=== PATIENT | female | born 1945 | race Caucasian/White ===

== ENCOUNTER → 2017-06-28 | Outpatient (CLI) | payer OTHER | LOC: ULTRA 09:23 | DX: M79.605 Pain in left leg (principal); M79.89 Other specified soft tissue disorders ==

== ENCOUNTER → 2019-06-19 | Outpatient (CLI) | payer OTHER ==
[~2019-06-19] MED LIST: 8 HOUR C500 MG PO; ASA81BEC PO; ASTAGRAF XL1 MG PO; COZAAR 25 MG TA25 M1 PO; DIPHENHYDRAMINE25 M3 PO; KLOR-CON 10 ER10 MEQ PO; LEVO-T75 MCG PO; METOPROLOL SUCC50 MG PO; MULTI-DAY PLUS1 EAC1 PO; OXYBUTYNIN 5 MG5 M2 PO; TRIGLIDE160 MG PO; VITAMIN D32000 UNI2 PO
== END ==
LOC: SJCVC 10:22
DX: R00.1 Bradycardia, unspecified (principal); R94.31 Abnormal electrocardiogram [ECG] [EKG]; I42.9 Cardiomyopathy, unspecified; I12.9 Hypertensive chronic kidney disease with stage 1 through stage 4 chronic kidney disease, or unspecified chronic kidney disease; N18.3 Chronic kidney disease, stage 3 (moderate); E78.5 Hyperlipidemia, unspecified; M19.90 Unspecified osteoarthritis, unspecified site; Z82.49 Family history of ischemic heart disease and other diseases of the circulatory system; Z79.899 Other long term (current) drug therapy

== ENCOUNTER → 2019-07-03 | Outpatient (CLI) | payer OTHER | END | disposition home or self-care (01) | LOC: SJCVCIMAG 07:50 | DX: I08.8 Other rheumatic multiple valve diseases (principal); I42.8 Other cardiomyopathies; I10 Essential (primary) hypertension ==

== ENCOUNTER → 2019-07-08 | Outpatient (CLI) | payer OTHER ==
[~2019-07-08] VITALS: Ht 167.6 cm; Wt 74.4 kg
[2019-07-08 07:03] VITALS: BP 161/75
[2019-07-08 07:26] LABS: HEMATOCRIT 37.3 % (37.0-47.0); HEMOGLOBIN 12.4 gm/dL (12.0-15.0); MCH 30.8 pg (26.0-34.0); MCHC 33.1 g/dL (28.0-37.0); MCV 93.2 fL (80.0-100.0); RBC 4.01 mil/uL (4.20-5.00); WBC 6.6 thou/uL (4.0-11.0)
[2019-07-08 07:36] LABS: CALCIUM 9.6 mg/dL (8.5-10.1); CREATININE 1.7 mg/dL (0.6-1.0); POTASSIUM 4.7 mmol/L (3.5-5.1)
--- NOTE | 2019-07-10 12:42 | EKG ---
[facility] [place] [address] ELECTROCARDIOGRAM REPORT Name: RAFI SAAVEDRA Room #: REG [facility]#: [id number] Admission: 07/08/19 Attend Phys: Zev Oropeza MD, Discharge: Date of : 41 Report #: [id number] THIS REPORT FOR: cc: Ehsan Green,Omkar Caldwell MD [facility] ~ THIS REPORT FOR: //name// [facility] Test Date: 2019-07-08 Test Time: 07:13:08 Pat Name: RAFI SAAVEDRA Department: Room: Gender: Analyst [employer]: Lexie ANDREA : 1945 Requested By: Zve Oropeza Order Number: [id number] MD: Omkar Ríos Measurements Intervals [place] Rate: 73 P: 23 MN: 171 QRS: 15 QRSD: 96 T: 42 QT: 395 QTc: 436 Interpretive Statements Sinus rhythm Normal tracing No previous ECG available for comparison Electronically Signed On 07-08-2019 9:41:15 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
== END | disposition home or self-care (01) ==
LOC: CATH 06:26
PROVIDERS: Internal Medicine Cardiovascular Disease
DX: Z53.8 Procedure and treatment not carried out for other reasons (principal); I10 Essential (primary) hypertension; E78.5 Hyperlipidemia, unspecified; I42.9 Cardiomyopathy, unspecified; M19.90 Unspecified osteoarthritis, unspecified site; Z90.710 Acquired absence of both cervix and uterus; Z96.642 Presence of left artificial hip joint; Z98.890 Other specified postprocedural states; Z79.899 Other long term (current) drug therapy; Z88.8 Allergy status to other drugs, medicaments and biological substances; Z87.19 Personal history of other diseases of the digestive system; Z82.49 Family history of ischemic heart disease and other diseases of the circulatory system

== ENCOUNTER → 2019-07-09 | Outpatient (CLI) | payer OTHER | END | disposition home or self-care (01) | LOC: SJCVCIMAG 12:53 | DX: R94.39 Abnormal result of other cardiovascular function study (principal); I10 Essential (primary) hypertension; I42.8 Other cardiomyopathies ==

== ENCOUNTER → 2020-01-01 | Outpatient (CLI) | payer OTHER | LOC: SJCVC 14:26 | PROVIDERS: ATTEND Internal Medicine Cardiovascular Disease | DX: I42.8 Other cardiomyopathies (principal); I10 Essential (primary) hypertension; I38 Endocarditis, valve unspecified; I49.3 Ventricular premature depolarization; E78.00 Pure hypercholesterolemia, unspecified; Z79.899 Other long term (current) drug therapy ==

== ENCOUNTER → 2020-07-29 | Outpatient (CLI) | payer OTHER | LOC: SJCVCIMAG 08:24 | PROVIDERS: ATTEND Internal Medicine Cardiovascular Disease | DX: I08.8 Other rheumatic multiple valve diseases (principal); I42.8 Other cardiomyopathies; R94.31 Abnormal electrocardiogram [ECG] [EKG]; I49.3 Ventricular premature depolarization; I10 Essential (primary) hypertension; E78.00 Pure hypercholesterolemia, unspecified; N05.2 Unspecified nephritic syndrome with diffuse membranous glomerulonephritis; E78.5 Hyperlipidemia, unspecified; Z90.710 Acquired absence of both cervix and uterus; Z98.890 Other specified postprocedural states; Z88.8 Allergy status to other drugs, medicaments and biological substances; Z79.899 Other long term (current) drug therapy; Z86.16 Personal history of COVID-19; Z82.49 Family history of ischemic heart disease and other diseases of the circulatory system ==

== ENCOUNTER → 2021-03-31 | Outpatient (CLI) | payer OTHER | LOC: SJCVC 13:56 | PROVIDERS: ATTEND Internal Medicine Cardiovascular Disease | DX: R94.31 Abnormal electrocardiogram [ECG] [EKG] (principal); I49.3 Ventricular premature depolarization; I13.0 Hypertensive heart and chronic kidney disease with heart failure and stage 1 through stage 4 chronic kidney disease, or unspecified chronic kidney disease; N18.32 Chronic kidney disease, stage 3b; E78.5 Hyperlipidemia, unspecified; I10 Essential (primary) hypertension; K21.9 Gastro-esophageal reflux disease without esophagitis; J43.9 Emphysema, unspecified; F32.9 Major depressive disorder, single episode, unspecified; I42.9 Cardiomyopathy, unspecified; E78.00 Pure hypercholesterolemia, unspecified; I38 Endocarditis, valve unspecified; I48.91 Unspecified atrial fibrillation; I07.1 Rheumatic tricuspid insufficiency; M19.90 Unspecified osteoarthritis, unspecified site; L57.0 Actinic keratosis; Z86.16 Personal history of COVID-19; Z72.89 Other problems related to lifestyle; Z79.899 Other long term (current) drug therapy; Z82.49 Family history of ischemic heart disease and other diseases of the circulatory system; Z88.5 Allergy status to narcotic agent; Z88.8 Allergy status to other drugs, medicaments and biological substances ==